=== PATIENT | male | born 1960 | race Caucasian/White ===

== ENCOUNTER 2020-09-23 17:41 | Emergency (ER) | payer BC ==
[2020-09-23] MEDS ORDERED: Aspirin 81 MG Tab.Chew PO ONE (17:50)
[2020-09-23] MEDS ORDERED: Nitroglycerin 0.4 MG Tab.SL SL PRN (18:21)
--- NOTE | 2020-09-23 18:27 | EDM.PDOC ---
ED HPI GENERAL MEDICAL PROBLEM - General Chief Complaint: Chest Pain Stated Complaint: CHEST TIGHTNESS Time Seen by Provider: 09/23/20 18:05 Source of Information: Reports: Patient History Limitations: Reports: No Limitations - History of Present Illness INITIAL COMMENTS - FREE TEXT/NARRATIVE: Jax comes into [facility] ED with 3 episodes of L precordial chest pain radiating into the L should and arm, beginning around 1 pm. Pain was acheing as though squeezing sensation. There has no reported SOB, efforts to belch were generally ineffective. Initial episode lasted 3-4 minutes, followed by a nap of 45 minutes, and then upon arising, sxs relapsed again on 2 additional occasions over the next 2 hours, associated with some nausea. Upon arrival at the ED, pain had largely subsided, VSS. After interview and limited examination, pain relapsed again, and patient was administered 4 baby ASA and TNG .4mg SL with some relief of pain, although nausea was again present. The resting 12 lead EKG was NSR. L chest pain Pain Score (Numeric/FACES): 0 - Related Data Allergies Allergy/AdvReac Type Severity Reaction Status Date / Time No Known Allergies Allergy Verified 09/23/20 17:52 Home Meds: Home Meds lisinopriL [Lisinopril] 10 mg PO DAILY 09/23/20 [History] Past Medical History Cardiovascular History: Reports: Hypertension Musculoskeletal History: Reports: Arthritis, Back Pain, Chronic - Infectious Disease History Infectious Disease History: Reports: Measles, Mumps Social & Family History - Family History Family Medical History: Unobtainable - Tobacco Use Tobacco Use Status *Q: Current Every Day Tobacco User Years of Tobacco use: 30 Packs/Tins Daily: 0.5 - Caffeine Use Caffeine Use: Reports: None - Recreational Drug Use Recreational Drug Use: No ED ROS GENERAL - Review of Systems Review Of Systems: See Below Constitutional: Reports: No Symptoms HEENT: Reports: No Symptoms Respiratory: Reports: No Symptoms Cardiovascular: Reports: Chest Pain Endocrine: Reports: No Symptoms GI/Abdominal: Reports: Nausea : Reports: No Symptoms Musculoskeletal: Reports: No Symptoms Skin: Reports: No Symptoms Neurological: Reports: No Symptoms Psychiatric: Reports: No Symptoms Hematologic/Lymphatic: Reports: No Symptoms Immunologic: Reports: No Symptoms ED EXAM, GENERAL - Physical Exam Exam: See Below Exam Limited By: No Limitations General Appearance: Alert, WD/WN, No Apparent Distress, Anxious, Obese Eye Exam: Bilateral Eye: EOMI, Normal Inspection, PERRL Ears: Normal External Exam Nose: Normal Inspection Throat/Mouth: Normal Inspection, Normal Oropharynx, Normal Voice, No Airway Compromise Head: Normocephalic Neck: Normal Inspection, Supple Respiratory/Chest: Lungs Clear, Normal Breath Sounds, Chest Non-Tender Cardiovascular: Normal Peripheral Pulses, Regular Rate, Rhythm, No Murmur GI/Abdominal: Normal Bowel Sounds, Soft, Non-Tender, No Organomegaly, No Mass (Male) Exam: Deferred Rectal (Males) Exam: Deferred Back Exam: Normal Inspection Extremities: Normal Inspection Neurological: Alert, Oriented, CN II-XII Intact, Normal Cognition, No Motor/Sensory Deficits Psychiatric: Normal Affect, Anxious Skin Exam: Warm, Dry, Intact, Normal Color, No Rash Lymphatic: No Adenopathy Course - Vital Signs Text/Narrative:: Following admission, a peripheral IV was established, ASA 81 mg x 4 completed, and monitoring was established. Screening labs were drawn: CBC and CMP baseline, Troponin I 17.4, D Dimer 4.89; Covid 19 pending; portable chest x ray: no cardiac enlargement or active infiltrates. EKGs x 2 noted NSR without acute changes. During monitoring, an episode of chest pain noted ST segment elevation of 1-1.5 mm V2 for 8-9 minutes, and then resolved with pain. Another episode of ST segment elevation was observed later that lasted 3-4 minutes without pain. Case was discussed with Dr Oh at [facility], who accepted patient to admission for further evaluation. I administered Brilinta 180 mg po and Ni troglycerin oint 1 gm as requested prior to transport. Patient and spouse are in agreement with this COA. Last Recorded V/S: Last Vital Signs Temp 36.4 C 09/23/20 17:42 Pulse 99 09/23/20 17:42 Resp 20 09/23/20 17:42 BP 151/92 H 09/23/20 18:28 Pulse Ox 100 09/23/20 17:42 - Orders/Labs/Meds Orders: Active Orders 24 hr Category Date Time Status EKG Documentation Completion [RC] ASDIRECTED Care 09/23/20 18:20 Active EKG Documentation Completion [RC] ASDIRECTED Care 09/23/20 19:12 Active Chest 1V Frontal [CR] Stat Exams 09/23/20 18:19 Ordered CORONAVIRUS COVID-19 BRITTNI [MOLEC] Stat Lab 09/23/20 19:20 Received Nitroglycerin [Nitro-Bid 2%] Med 09/23/20 19:44 Once 1 gm TOP ONETIME ONE Nitroglycerin [Nitrostat] Med 09/23/20 18:21 Active 0.4 mg SL Q5M PRN Sodium Chloride 0.9% [Saline Flush] Med 09/23/20 18:33 Active 10 ml FLUSH ASDIRECTED PRN Peripheral IV Insertion Adult [OM.PC] Routine Oth 09/23/20 18:33 Ordered EKG 12 Lead [EK] Routine Ther 09/23/20 18:19 Ordered EKG 12 Lead [EK] Routine Ther 09/23/20 19:11 Ordered Medication Orders Nitroglycerin (Nitrostat) 0.4 mg SL Q5M PRN PRN Reason: Chest Pain Last Admin: 09/23/20 18:28 Dose: 0.4 mg Documented by: DRAPJUL Sodium Chloride (Saline Flush) 10 ml FLUSH ASDIRECTED PRN PRN Reason: Keep Vein Open Last Admin: 09/23/20 18:39 Dose: 10 ml Documented by: DRAPJUL Labs: Laboratory Tests 09/23/20 09/23/20 09/23/20 Range/Units 17:50 17:50 17:50 WBC 11.8 H (3.2-10.1) x10-3/uL RBC 4.72 (3.90-5.90) x10(6)uL Hgb 14.6 (12.9-17.7) g/dL Hct 43.1 (38.3-50.1) % MCV 91.4 (80.8-98.7) fL MCH 30.9 (27.0-33.3) pg MCHC 33.8 (28.7-35.3) g/dL RDW 12.5 (12.4-15.0) % Plt Count 442 (117-477) x10(3)uL MPV 7.8 (6.7-11.0) fL Neut % (Auto) 57.2 (40.3-71.8) % Lymph % (Auto) 32.0 (15.8-45.3) % [place] % (Auto) 6.3 (5.5-15.2) % Eos % (Auto) 3.2 (0.1-6.8) % Baso % (Auto) 1.3 (0.3-3.8) % Neut # (Auto) 6.7 (1.7-6.9) x10-3/uL Lymph # (Auto) 3.8 (0.5-4.5) x10-3/uL [place] # (Auto) 0.7 (0.0-1.2) x10-3/uL Eos # (Auto) 0.4 (0.0-0.6) x10-3/uL Baso # (Auto) 0.1 (0.0-0.3) x10-3/uL D-Dimer, Quantitative 4.89 H (0.0-0.59) mg/LFEU Sodium 136 (135-145) mmol/L Potassium 4.1 (3.5-5.3) mmol/L Chloride 100 (100-110) mmol/L Carbon Dioxide 26 (21-32) mmol/L BUN 28 H (7-18) mg/dL Creatinine 1.1 (0.70-1.30) mg/dL Est Cr Clr Drug Dosing 69.95 mL/min Estimated GFR (MDRD) > 60 (>60) BUN/Creatinine Ratio 25.5 H (9-20) Glucose 138 H (80-116) mg/dL Calcium 9.6 (8.6-10.2) mg/dL Total Bilirubin 0.2 (0.1-1.3) mg/dL AST 17 (5-25) IU/L ALT 32 (12-36) U/L Alkaline Phosphatase 142 H (56-112) IU/L Troponin I (4.0-60.3) pg/mL Total Protein 7.6 (6.0-8.0) g/dL Albumin 3.7 (3.5-5.2) g/dL Globulin 3.9 g/dL Albumin/Globulin Ratio 1.0 09/23/20 Range/Units 17:50 WBC (3.2-10.1) x10-3/uL RBC (3.90-5.90) x10(6)uL Hgb (12.9-17.7) g/dL Hct (38.3-50.1) % MCV (80.8-98.7) fL MCH (27.0-33.3) pg MCHC (28.7-35.3) g/dL RDW (12.4-15.0) % Plt Count (117-477) x10(3)uL MPV (6.7-11.0) fL Neut % (Auto) (40.3-71.8) % Lymph % (Auto) (15.8-45.3) % [place] % (Auto) (5.5-15.2) % Eos % (Auto) (0.1-6.8) % Baso % (Auto) (0.3-3.8) % Neut # (Auto) (1.7-6.9) x10-3/uL Lymph # (Auto) (0.5-4.5) x10-3/uL [place] # (Auto) (0.0-1.2) x10-3/uL Eos # (Auto) (0.0-0.6) x10-3/uL Baso # (Auto) (0.0-0.3) x10-3/uL D-Dimer, Quantitative (0.0-0.59) mg/LFEU Sodium (135-145) mmol/L Potassium (3.5-5.3) mmol/L Chloride (100-110) mmol/L Carbon Dioxide (21-32) mmol/L BUN (7-18) mg/dL Creatinine (0.70-1.30) mg/dL Est Cr Clr Drug Dosing mL/min Estimated GFR (MDRD) (>60) BUN/Creatinine Ratio (9-20) Glucose (80-116) mg/dL Calcium (8.6-10.2) mg/dL Total Bilirubin (0.1-1.3) mg/dL AST (5-25) IU/L ALT (12-36) U/L Alkaline Phosphatase (56-112) IU/L Troponin I 17.4 (4.0-60.3) pg/mL Total Protein (6.0-8.0) g/dL Albumin (3.5-5.2) g/dL Globulin g/dL Albumin/Globulin Ratio Meds: Medications Generic Name Dose Route Start Last Admin Trade Name Freq PRN Reason Stop Dose Admin Nitroglycerin 0.4 mg 09/23/20 18:21 09/23/20 18:28 Nitrostat SL 0.4 mg Q5M PRN Administration Chest Pain Sodium Chloride 10 ml 09/23/20 18:33 09/23/20 18:39 Saline Flush FLUSH 10 ml ASDIRECTED PRN Administration Keep Vein Open Discontinued Medications Generic Name Dose Route Start Last Admin Trade Name Freq PRN Reason Stop Dose Admin Aspirin 324 mg 09/23/20 17:50 09/23/20 17:50 Aspirin PO 09/23/20 17:51 324 mg ONETIME ONE Administration Ticagrelor 180 mg 09/23/20 19:30 Brilinta PO 09/23/20 19:31 ONETIME ONE Departure - Departure Time of Disposition: 20:00 Disposition: DC/Tfer to Other 70 Reason for Transfer *Q: Primary PCI Indicated Condition: Fair Clinical Impression: Unstable angina pectoris Referrals: PCP,None [Ordering Only Provider] - Forms: ED Department Discharge Sepsis Event Note (ED) - Evaluation Sepsis Screening Result: No Definite Risk - Focused Exam Vital Signs: Vital Signs Temp Pulse Resp BP BP Pulse Ox 09/23/20 18:28 151/92 H 09/23/20 17:42 36.4 C 99 20 142/100 H 100 - Problem List & Annotations (1) Unstable angina pectoris SNOMED Code(s): 0060233, 478689539 Code(s): I20.0 - UNSTABLE ANGINA Status: Acute Current Visit: Yes Annotation/Comment:: Transfer to [facility] and Cardiology services. - Problem List Review Problem List Initiated/Reviewed/Updated: Yes - My Orders Last 24 Hours: My Active Orders 09/23/20 18:19 Chest 1V Frontal [CR] Stat EKG 12 Lead [EK] Routine 09/23/20 18:20 EKG Documentation Completion [RC] ASDIRECTED 09/23/20 18:21 Nitroglycerin [Nitrostat] 0.4 mg SL Q5M PRN 09/23/20 18:33 Sodium Chloride 0.9% [Saline Flush] 10 ml FLUSH ASDIRECTED PRN Peripheral IV Insertion Adult [OM.PC] Routine 09/23/20 19:11 EKG 12 Lead [EK] Routine 09/23/20 19:12 EKG Documentation Completion [RC] ASDIRECTED 09/23/20 19:20 CORONAVIRUS COVID-19 BRITTNI [MOLEC] Stat 09/23/20 19:44 Nitroglycerin [Nitro-Bid 2%] 1 gm TOP ONETIME ONE - Assessment/Plan Last 24 Hours: My Active Orders 09/23/20 18:19 Chest 1V Frontal [CR] Stat EKG 12 Lead [EK] Routine 09/23/20 18:20 EKG Documentation Completion [RC] ASDIRECTED 09/23/20 18:21 Nitroglycerin [Nitrostat] 0.4 mg SL Q5M PRN 09/23/20 18:33 Sodium Chloride 0.9% [Saline Flush] 10 ml FLUSH ASDIRECTED PRN Peripheral IV Insertion Adult [OM.PC] Routine 09/23/20 19:11 EKG 12 Lead [EK] Routine 09/23/20 19:12 EKG Documentation Completion [RC] ASDIRECTED 09/23/20 19:20 CORONAVIRUS COVID-19 BRITTNI [MOLEC] Stat 09/23/20 19:44 Nitroglycerin [Nitro-Bid 2%] 1 gm TOP ONETIME ONE Plan: Follow up with PCP.
[2020-09-23] MEDS ORDERED: Sodium Chloride 0.9% 10 ML Syringe FLUSH PRN (18:33)
[2020-09-23] MEDS ORDERED: Ticagrelor 90 MG Tab PO ONE (19:30)
[2020-09-23] MEDS ORDERED: Nitroglycerin 2% Oint 1 GM UD Packet TOP ONE (19:44)
--- NOTE | 2020-09-26 12:32 | CR ---
INDICATION: Chest pain. CHEST ONE VIEW: AP upright view of the chest was obtained in a wheelchair and revealed the heart to be normal in size and shape. The aorta is somewhat tortuous. Overlying EKG leads are noted. Hypertrophic degenerative changes are noted of vertebral bodies of the thoracic spine. A definite active infiltrate or effusion was not identified. IMPRESSION: No acute process. MTDD
== END 2020-09-23 20:10 | disposition other institution (70) ==
LOC: FB.ED 17:41
DX: I20.0 Unstable angina (principal); F17.210 Nicotine dependence, cigarettes, uncomplicated; Z79.899 Other long term (current) drug therapy
CPT/HCPCS: 36415; 71045; 80053; 84484; 85025; 85379; 87635; 93005; 99285; A9270; U0002

== ENCOUNTER 2022-03-29 08:09 | Day surgery (SDC) | payer BC ==
[2022-03-29] MEDS ORDERED: Propofol 200 MG/20 ML SDV IV ONE (08:10)
[2022-03-29] MEDS ORDERED: Lidocaine 2% 100 MG/5 ML Syringe IVPUSH ONE (08:10)
[2022-03-29] MEDS ORDERED: Sodium Chloride 0.9% 10 ML Syringe FLUSH PRN (08:30)
[2022-03-29] MEDS ORDERED: Lactated Ringers 1,000 ML IV SCH (08:30)
== END 2022-03-29 12:00 | disposition home or self-care (01) ==
LOC: FB.SDS 08:09
PROVIDERS: ATTEND Surgery
DX: D12.6 Benign neoplasm of colon, unspecified (principal); K57.30 Diverticulosis of large intestine without perforation or abscess without bleeding; K56.2 Volvulus; K40.90 Unilateral inguinal hernia, without obstruction or gangrene, not specified as recurrent; I25.10 Atherosclerotic heart disease of native coronary artery without angina pectoris; E78.5 Hyperlipidemia, unspecified; I10 Essential (primary) hypertension; I25.2 Old myocardial infarction; E66.9 Obesity, unspecified; Z91.048 Other nonmedicinal substance allergy status; Z87.891 Personal history of nicotine dependence; Z79.899 Other long term (current) drug therapy; Z68.36 Body mass index [BMI] 36.0-36.9, adult
CPT/HCPCS: 00811-QZ; 88305; J2704; J7120